=== PATIENT | female | born 1970 | race Hispanic/Latino ===

== ENCOUNTER 2017-07-10 09:37 | Emergency (ER) | payer SELFPAY ==
[2017-07-10 09:38] VITALS: BMI 26.6
[2017-07-10 09:54] VITALS: RESP 18; TEMP 98.6
[2017-07-10] MEDS ORDERED: Amoxicillin-Clav 875-125 mg Tab PO STA (10:06)
--- NOTE | 2017-07-10 10:10 | ED PDOC ---
Arrival/HPI - General Chief Complaint: Cough, Cold, Congestion Time Seen by Provider: 07/10/17 10:05 Historian: Patient - History of Present Illness Narrative History of Present Illness (Text): 07/10/17 10:07 47 y/o female, no significant pmh, nkda, c/o runny nose/nasal congestion/ headache and coughing x 2 days. Pt. stated that she has runny nose with nasal congestion, associated with productive coughing, frontal sinus pressure headache , no chest pain or shortness of breath, no bodyache or joint pain, no night sweat, no dizziness, no change in vision, no leg or calf pain history or currently, no rash, no other medical or psychological complaints. Past Medical History - Provider Review Nursing Documentation Reviewed: Yes - Infectious Disease Hx of Infectious Diseases: None - Reproductive Menopause: No - Psychiatric Hx Substance Use: No - Anesthesia Hx Anesthesia: No Family/Social History - Physician Review Nursing Documentation Reviewed: Yes Family/Social History: Unknown Family HX Smoking Status: Never Smoked Hx Alcohol Use: Yes Hx Substance Use: No Allergies/Home Meds Allergies/Adverse Reactions: Allergies No Known Allergies Allergy (Verified 07/10/17 09:50) Review of Systems - Review of Systems Constitutional: absent: Fatigue, Fevers Eyes: absent: Vision Changes ENT: Rhinorrhea, Sinus Congestion. absent: Hearing Changes Respiratory: Cough. absent: SOB Cardiovascular: absent: Chest Pain Gastrointestinal: absent: Abdominal Pain, Nausea, Vomiting Neurological: Headache. absent: Dizziness, Focal Weakness Psychiatric: absent: Anxiety, Depression Physical Exam Vital Signs Reviewed: Yes Vital Signs Temp Pulse Resp BP Pulse Ox 07/10/17 11:14 67 18 126/89 99 07/10/17 09:47 98.6 F 82 18 138/83 98 Temperature: Afebrile Blood Pressure: Normal Pulse: Regular Respiratory Rate: Normal Appearance: Positive for: Well-Appearing, Non-Toxic, Comfortable Pain Distress: Moderate Mental Status: Positive for: Alert and Oriented X 3 - Systems Exam Head: Present: Atraumatic, Normocephalic, Other (+ttp on the rt. maxillary sinus region with no facial or periorbital swelling. ) Pupils: Present: PERRL Extroacular Muscles: Present: EOMI Conjunctiva: Present: Normal Ears: Present: NORMAL TM, Normal Canal. No: Erythema Mouth: Present: Moist Mucous Membranes Pharnyx: No: ERYTHEMA, EXUDATE, TONSILS ENLARGED Nose (External): Present: Atraumatic. No: Abrasion, Contusion, Laceration Nose (Internal): Present: Normal Inspection, No Active Bleeding. No: Rhinorrhea , Septal Hematoma, Epistaxis Neck: Present: Normal Range of Motion, Trachea Midline. No: Meningeal Signs, MIDLINE TENDERNESS, JVD, Lymphadenopathy Respiratory/Chest: Present: Clear to Auscultation, Good Air Exchange, Rhonchi. No: Respiratory Distress, Accessory Muscle Use, Wheezes, Decreased Breath Sounds , Rales, Retracting, Tachypneic, Tender to Palpation Cardiovascular: Present: Regular Rate and Rhythm, Normal S1, S2. No: Murmurs, Peripheal Pulses Present, Tachycardic, Bradycardic, Rub Abdomen: Present: Normal Bowel Sounds. No: Tenderness, Distention, Peritoneal Signs Back: Present: Normal Inspection Upper Extremity: Present: Normal Inspection. No: Cyanosis, Edema Lower Extremity: Present: Normal Inspection. No: Edema Neurological: Present: GCS=15, Speech Normal, Motor Func Grossly Intact, Gait Normal, Memory Normal Skin: Present: Warm, Dry, Normal Color. No: Rashes Psychiatric: Present: Alert, Oriented x 3, Normal Insight, Normal Concentration Medical Decision Making ED Course and Treatment: 07/10/17 10:09 -Chest xray -toradol IM/augmentin/benadryl -observe and reassess 07/10/17 11:29 -Urine hcg is negative -EKG: NSR @ 712 BPM, no ST elevation or depression, no T wave inversion, compared with previous ekg. -Chest xray show no active disease -Pt. feels much better. -Discharge home with augmentin, prednisone, albuterol, claritin d, stay hydrated , bedrest, follow up with your own pmd within 2 days, return to the ER for any new or worsening signs or symptoms. - RAD Interpretation Radiology Orders: 07/10/17 10:06 CHEST TWO VIEWS (PA/LAT) [RAD] Stat LINES AND TUBES: None. LUNG AND PLEURA: The lungs are well inflated and clear. HEART AND MEDIASTINUM: The heart is not enlarged. The hilar and mediastinal contours are within normal limits. SKELETAL STRUCTURES: The bony structures are within normal limits for the patient's age. VISUALIZED UPPER ABDOMEN: Normal. OTHER FINDINGS: None. IMPRESSION: No active pulmonary disease. Medical Center Representative: Radiologist - EKG Interpretation EKG Interpretation (Text): 07/10/17 10:11 -EKG: NSR @ 712 BPM, no ST elevation or depression, no T wave inversion, compared with previous ekg. Interpreted by ED Physician: Yes Type: 12 lead EKG Comparison: Com.w/previous EKG - Medication Orders Current Medication Orders: Discontinued Medications Amoxicillin/Clavulanate Potassium (Augmentin 875 Mg-125 Mg Tab) 1 tab PO STAT STA PRN Reason: Protocol Stop: 07/10/17 10:07 Last Admin: 07/10/17 10:58 Dose: 1 tab Diphenhydramine HCl (Benadryl) 50 mg PO STAT STA Stop: 07/10/17 10:13 Last Admin: 07/10/17 10:58 Dose: 50 mg Ketorolac Tromethamine (Toradol) 60 mg IM STAT STA Stop: 07/10/17 10:07 Last Admin: 07/10/17 10:59 Dose: 60 mg MAR Pain Assessment Document 07/10/17 10:59 TAMARA (Rec: 07/10/17 10:59 TAMARA [id number]) Pain Reassessment Is this a pain reassessment? 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 Disposition/Present on Arrival - Present on Arrival Any Indicators Present on Arrival: No History of DVT/PE: No History of Uncontrolled Diabetes: No Urinary Catheter: No History of Decub. Ulcer: No History Surgical Site Infection Following: None - Disposition Have Diagnosis and Disposition been Completed?: Yes Diagnosis: Sinusitis, Bronchitis Disposition: HOME/ ROUTINE Disposition Time: 10:11 Patient Plan: Discharge Condition: IMPROVED Discharge Instructions (ExitCare): Sinusitis, Adult (DC), Acute Bronchitis Additional Instructions: -Discharge home with augmentin, prednisone, albuterol, claritin d, stay hydrated , bedrest, follow up with your own pmd within 2 days, return to the ER for any new or worsening signs or symptoms. Prescriptions: Albuterol HFA [Ventolin HFA 90 mcg/actuation (8 g)] 2 puff IH [id number] PRN #1 in PRN Reason: Other Amoxicillin/Clavulanate [Augmentin 875 MG-125 MG] 1 tab PO BID #14 tab Loratadine/Pseudoephedrine [Claritin-D 24 Hour Tablet] 1 each PO DAILY #6 tab.er.24h Prednisone 50 mg PO DAILY #5 tab Referrals: Deonte Forrester DO [[facility]] - Follow up with primary [facility] at [facility] [place] [Outside] - Follow up with primary Forms: WORK NOTE
[2017-07-10 11:14] VITALS: BP 126/89; PULSE 67; O2SAT 99
--- NOTE | 2017-07-10 11:49 | RAD ---
HISTORY: COMPARISON: 04/30/2015. TECHNIQUE: Chest PA and lateral FINDINGS: LINES AND TUBES: None. LUNG AND PLEURA: The lungs are well inflated and clear. HEART AND MEDIASTINUM: The heart is not enlarged. The hilar and mediastinal contours are within normal limits. SKELETAL STRUCTURES: The bony structures are within normal limits for the patient's age. VISUALIZED UPPER ABDOMEN: Normal. OTHER FINDINGS: None. IMPRESSION: No active pulmonary disease.
--- NOTE | 2017-07-11 09:38 | CARD ---
APPROVED REPORT EKG Measurement Heart [id number] <Conclusion> Normal sinus rhythm Nonspecific T wave abnormality
== END 2017-07-10 11:41 | disposition home or self-care (01) ==
LOC: ED 09:37
DX: J32.9 Chronic sinusitis, unspecified (principal); J40 Bronchitis, not specified as acute or chronic
CPT/HCPCS: 71046; 93005; 96372; 99282; J1885